=== PATIENT | male | born 1970 | race Caucasian/White ===

== ENCOUNTER → 2017-05-01 | Outpatient (CLI) | payer OTHER ==
--- NOTE | 2017-05-01 17:38 | REP ---
HISTORY: Pain. COMPARISON: None. FINDINGS: The joint spaces are symmetric and relatively well maintained. There is no evidence of acute fracture or destructive osseous lesion. IMPRESSION: Negative. Signed by Lyle Trevino DO 05/01/2017 05:46 P
== END ==
LOC: M WUC 12:25
PROVIDERS: ATTEND Physician Assistant
DX: M79.642 Pain in left hand (principal); M79.645 Pain in left finger(s)

== ENCOUNTER 2017-10-14 10:20 | Emergency (ER) | payer OTHER | END 2017-10-14 16:04 | disposition home or self-care (01) | LOC: M ED 10:20 | DX: M51.16 Intervertebral disc disorders with radiculopathy, lumbar region (principal); V49.40XA Driver injured in collision with unspecified motor vehicles in traffic accident, initial encounter; Y92.410 Unspecified street and highway as the place of occurrence of the external cause | CPT/HCPCS: 72131 ==

== ENCOUNTER → 2017-12-27 | Outpatient (REF) | payer OTHER ==
[2017-12-27 12:55] LABS: PLATELET COUNT, AUTOMATED 295 10^3/uL (150-450)
[2017-12-27 13:05] LABS: INR 0.97; PROTHROMBIN TIME 12.9 SECONDS (12.4-14.5)
== END ==
LOC: M LABDRAW1 12:46
DX: M43.06 Spondylolysis, lumbar region (principal); M47.27 Other spondylosis with radiculopathy, lumbosacral region; M47.816 Spondylosis without myelopathy or radiculopathy, lumbar region; M51.37 Other intervertebral disc degeneration, lumbosacral region
CPT/HCPCS: 85049

== ENCOUNTER 2021-07-30 14:28 | Emergency (ER) | payer OTHER ==
[~2021-07-30] VITALS: Ht 170.2 cm; Wt 90.9 kg
[~2021-07-30 14:28] MED LIST: PERC5TAB12 PO
--- OUTSIDE RECORDS SUMMARY | 2021-07-30 14:32 | CCD ---
Author Author [facility] Address Unknown Phone Unavailable Support Name Relationship Address Phone [employer] [place] [phone] EMILY GAMEZ Next Of Kin [id number] [place] [address] Re-disclosure Warning The records that you are about to access may contain information from federally-assisted alcohol or drug abuse programs. If such information is present, then the following federally mandated warning applies: This information has been disclosed to you from records protected by federal confidentiality rules (42 CFR part 2). The federal rules prohibit you from making any further disclosure of this information unless further disclosure is expressly permitted by the written consent of the person to whom it pertains or as otherwise permitted by 42 CFR part 2. A general authorization for the release of medical or other information is NOT sufficient for this purpose. The Federal rules restrict any use of the information to criminally investigate or prosecute any alcohol or drug abuse patient.The records that you are about to access may contain highly sensitive health information, the redisclosure of which is protected by Article 27-F of the [facility] Public Health law. If you continue you may have access to information: Regarding HIV / AIDS; Provided by facilities licensed or operated by the [facility] Office of Mental Health; or Provided by the [facility] Office for People With Developmental Disabilities. If such information is present, then the following [facility] mandated warning applies: This information has been disclosed to you from confidential records which are protected by state law. State law prohibits you from making any further disclosure of this information without the specific written consent of the person to whom it pertains, or as otherwise permitted by law. Any unauthorized further disclosure in violation of state law may result in a fine or half-way sentence or both. A general authorization for the release of medical or other information is NOT sufficient authorization for further disc losure. Family History Family Member Name Family Member Gender Family Member Status Date o f Status Description Data Source(s) Unknown Male Problem [facility]ENT ([facility]) Unknown Female Problem [facility] ([facility]) Unknown Female Problem [facility] ([facility]) Medications No Information Insurance Providers Payer name Policy type / Coverage type Policy ID Covered constitution party ID Covered constitution party's relationship to smallwood Policy [place] Plan Information [employer] U [id number] Self [id number] [employer] Workers Compensation [id number] Self [id number] [facility] F[employer] MUTUAL AUTO O [id number] S [id number] [employer] COMMUNITY PLAN MCDHMO [id number] SP [id number] [employer] COMMUNITY PLAN MCDHMO [id number] SP [id number] [facility] O [id number] S [id number] [facility] Maintenance Organization (HMO) [id number] Self [id number] [facility] Health Maintenance Organization (HMO) [id number] Self [facility] COMMUNITY PLAN MCDHMO [id number] SP [id number] BC[employer] [id number] Family Dependent STATE [employer] INS NO FAULT [id number] SP [id number] Problems, Conditions, and Diagnoses No Information Surgeries/Procedures No Information Results No Information Social History No Information
[2021-07-30 15:21] LABS: HEMATOCRIT 43.9 % (42.0-52.0); HEMOGLOBIN 14.5 g/dl (13.5-17.5); MEAN CORPUSCULAR HEMOGLOBIN 28.4 pg (27.0-33.0); MEAN CORPUSCULAR VOLUME 85.9 fl (80.0-96.0); PLATELET COUNT, AUTOMATED 274 10^3/uL (150-450); RED BLOOD COUNT 5.11 10^6/uL (4.30-6.10); WHITE BLOOD COUNT 10.7 10^3/uL (4.0-10.0)
--- OUTSIDE RECORDS SUMMARY | 2021-07-30 15:44 | CCD ---
Author Author [facility] Organization [facility] Address Unknown Phone Unavailable Support Name Relationship Address Phone [employer] [place] [phone] EMILY GAMEZ Next Of Kin [phone] [place] [address] Re-disclosure Warning The records that you are [...] is protected by Article 27-F of the [facility] Public Health law. If you continue you may have access to information: Regarding HIV / AIDS; Provided by facilities licensed or operated by the [facility] Office of Mental Health; or Provided by the [facility] Office for People With Developmental Disabilities. If such information is present, then the following [facility] mandated warning applies: This information has been [...] law may result in a fine or mcfp sentence or both. 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 AUTO O [id number] S [id number] [employer] COMMUNITY PLAN MCDHMO [id number] SP [id number] [employer] COMMUNITY PLAN MCDHMO [id number] SP [id number] [facility] O [id number] S [id number] [facility] Health Maintenance Organization (HMO) [id number] Self [id number] [facility] Health Maintenance Organization (HMO) [id number] Self [facility] COMMUNITY PLAN MCDHMO [id number] SP [id number] [employer] [id number] Family Dependent [employer] INS NO FAULT [id number] SP [id number] Problems, Conditions, and Diagnoses No Information Surgeries/Procedures No Information Results No Information Social History No Information
[2021-07-30 15:58] LABS: ACETAMINOPHEN LEVEL < 2.0 UG/ML (10.0-30.0); ALBUMIN 4.6 GM/DL (3.2-5.2); ALT/SGPT 27 U/L (12-78); AMPHETAMINES LEVEL URINE NEGATIVE (NEGATIVE); BARBITURATES URINE NEGATIVE (NEGATIVE); BENZODIAZEPINES URINE NEGATIVE (NEGATIVE); BILIRUBIN,DIRECT 0.1 MG/DL (0.0-0.2); BILIRUBIN,TOTAL 0.5 MG/DL (0.2-1.0); BLOOD UREA NITROGEN 17 MG/DL (7-18); CALCIUM LEVEL 9.5 MG/DL (8.5-10.1); CANNABINOIDS URINE POSITIVE (NEGATIVE); CARBON DIOXIDE LEVEL 25 MEQ/L (21-32); CHLORIDE LEVEL 107 MEQ/L (98-107); COCAINE METABOLITE URINE NEGATIVE (NEGATIVE); CREATININE FOR GFR 1.06 MG/DL (0.70-1.30); ETHYL ALCOHOL (ETHANOL) < 0.003 % (0.000-0.010); GLOMERULAR FILTRATION RATE > 60.0 (>56); GLUCOSE, FASTING 114 MG/DL (70-100); METHADONE URINE NEGATIVE (NEGATIVE); OPIATES URINE NEGATIVE (NEGATIVE); PHENCYCLIDINE URINE NEGATIVE (NEGATIVE); POTASSIUM SERUM 4.2 MEQ/L (3.5-5.1); SODIUM LEVEL 141 MEQ/L (136-145)
[2021-07-30 18:20] VITALS: BP 140/90
== END 2021-07-30 18:25 | disposition home or self-care (01) ==
LOC: M ED 14:28
DX: Z04.6 Encounter for general psychiatric examination, requested by authority (principal); F12.20 Cannabis dependence, uncomplicated

== ENCOUNTER 2022-01-10 06:33 | Emergency (ER) | payer OTHER, SELFPAY ==
[~2022-01-10] VITALS: Ht 170.2 cm; Wt 92.4 kg
[2022-01-10] MEDS ORDERED: NS 1,000 ML IV ONE ×2 (07:05→09:25)
[2022-01-10] MEDS ORDERED: ACETAMINOPHEN 325 MG TAB PO ONE (07:25)
[2022-01-10 07:53] LABS: BASO % 0.2 % (0.0-1.0); EOS % 0.1 % (0.0-3.0); HEMATOCRIT 40.2 % (42.0-52.0); HEMOGLOBIN 13.6 g/dl (13.5-17.5); LYMPH % 5.1 % (24.0-44.0); MEAN CORPUSCULAR HGB CONC 33.8 g/dl (32.0-36.5); MEAN CORPUSCULAR VOLUME 85.7 fl (80.0-96.0); MONO % 5.2 % (2.0-8.0); NEUTROPHILS # 17.4 10^3/uL (1.5-8.5); NEUTROPHILS % 88.9 % (36.0-66.0); PLATELET COUNT, AUTOMATED 207 10^3/uL (150-450); RED BLOOD COUNT 4.69 10^6/uL (4.30-6.10); WHITE BLOOD COUNT 19.6 10^3/uL (4.0-10.0)
[2022-01-10 07:54] LABS: RSV AMPLIFICATION NEGATIVE (NEGATIVE)
[2022-01-10] MEDS ORDERED: ONDANSETRON 4MG/2ML VIAL IV ONE (07:55)
[2022-01-10] MEDS ORDERED: ALBUTEROL 90 MCG/ACT 8GM HFA INHALER INH ONE (08:05)
[2022-01-10] MEDS ORDERED: LevoFLOXacin IV 750 MG in IV 1 EA IV ONE (08:15)
[2022-01-10] MEDS ORDERED: cefTRIAXone SOD 2 GM in D5W MINI-BAG PLUS 50 ML IV ONE (08:15)
[2022-01-10 08:17] LABS: ALBUMIN 4.1 GM/DL (3.2-5.2); ALT/SGPT 29 U/L (12-78); BILIRUBIN,DIRECT 0.2 MG/DL (0.0-0.2); BILIRUBIN,TOTAL 0.4 MG/DL (0.2-1.0); BLOOD UREA NITROGEN 14 MG/DL (7-18); C REACTIVE PROTEIN QUANTITATIV 4.28 MG/DL (0.00-0.30); CALCIUM LEVEL 8.8 MG/DL (8.5-10.1); CARBON DIOXIDE LEVEL 28 MEQ/L (21-32); CHLORIDE LEVEL 105 MEQ/L (98-107); CREATININE FOR GFR 1.06 MG/DL (0.70-1.30); GLOMERULAR FILTRATION RATE > 60.0 (>56); GLUCOSE, FASTING 140 MG/DL (70-100); LIPASE 41 U/L (73-393); NT-PRO BNP 339 PG/ML (<125); POTASSIUM SERUM 4.3 MEQ/L (3.5-5.1); SODIUM LEVEL 137 MEQ/L (136-145); TOTAL PROTEIN 7.2 GM/DL (6.4-8.2)
[2022-01-10 08:23] LABS: ERYTHROCYTE SEDIMENTATION RATE 13 mm/hr (0-20)
[2022-01-10] MEDS ORDERED: ISOVUE-370 76% 100ML VIAL As Ordered ONE (09:35)
[2022-01-10] MEDS ORDERED: LEVO500T4 PO (10:22)
[2022-01-10] MEDS ORDERED: PROAAER10 INH (10:22)
[2022-01-10] MEDS ORDERED: BENZ200C70 PO (10:26)
[2022-01-10 10:39] VITALS: BP 143/73
== END 2022-01-10 10:40 | disposition home or self-care (01) ==
LOC: M ED 06:33
DX: J84.9 Interstitial pulmonary disease, unspecified (principal)
CPT/HCPCS: 71046; 71275; 80048; 80076; 83605; 83690; 83880; 85025; 85379; 85652; 86140; 87040; 87070; 87205; 87631; 87880; 93005; 94640; 96361; 96365; 96366; 96368; 96375; 99284; J0696; J1956; J2405; Q9967

== ENCOUNTER 2022-02-23 10:13 | Emergency (ER) | payer OTHER ==
[~2022-02-23] VITALS: Ht 170.2 cm; Wt 90.2 kg
[~2022-02-23 10:13] MED LIST changes: +BENZ200C70 PO; +LEVO500T4 PO; +PROAAER10 INH
[2022-02-23] MEDS ORDERED: MORPHINE 4 MG/ML 1ML VIAL/SYRINGE IV ONE (10:20)
[2022-02-23] MEDS ORDERED: BOOSTRIX/ADACEL VACCINE (DIPHTH/PERTUSS/ACELL/TETANUS) 0.5ML SYR IM ONE (10:20)
[2022-02-23] MEDS ORDERED: ceFAZolin SOD 2 GM in IV 1 EA IV ONE (10:20)
[2022-02-23] MEDS ORDERED: KETOROLAC 30 MG/ML 1ML VIAL IV ONE (10:40)
[2022-02-23 10:57] LABS: BASO # 0.1 10^3/uL (0.0-0.2); BASO % 0.8 % (0.0-1.0); EOS # 0.2 10^3/uL (0.0-0.5); EOS % 2.4 % (0.0-3.0); HEMATOCRIT 42.2 % (42.0-52.0); HEMOGLOBIN 13.9 g/dl (13.5-17.5); LYMPH # 2.7 10^3/uL (1.5-5.0); LYMPH % 40.8 % (24.0-44.0); MEAN CORPUSCULAR HEMOGLOBIN 28.4 pg (27.0-33.0); MEAN CORPUSCULAR HGB CONC 32.9 g/dl (32.0-36.5); MEAN CORPUSCULAR VOLUME 86.1 fl (80.0-96.0); MONO # 0.6 10^3/uL (0.0-0.8); MONO % 8.7 % (2.0-8.0); NEUTROPHILS # 3.1 10^3/uL (1.5-8.5); NEUTROPHILS % 47.1 % (36.0-66.0); PLATELET COUNT, AUTOMATED 260 10^3/uL (150-450); WHITE BLOOD COUNT 6.6 10^3/uL (4.0-10.0)
[2022-02-23 11:24] LABS: BLOOD UREA NITROGEN 17 MG/DL (7-18); CARBON DIOXIDE LEVEL 27 MEQ/L (21-32); CHLORIDE LEVEL 105 MEQ/L (98-107); GLOMERULAR FILTRATION RATE > 60.0 (>56); GLUCOSE, FASTING 103 MG/DL (70-100); POTASSIUM SERUM 4.5 MEQ/L (3.5-5.1); SODIUM LEVEL 138 MEQ/L (136-145)
[2022-02-23] MEDS ORDERED: HYDR-3713 PO (11:33)
[2022-02-23] MEDS ORDERED: CEPH500C PO (11:33)
[2022-02-23 12:35] VITALS: BP 162/98
== END 2022-02-23 13:19 | disposition home or self-care (01) ==
LOC: M ED 10:13
DX: S68.521A Partial traumatic transphalangeal amputation of right thumb, initial encounter (principal); W31.2XXA Contact with powered woodworking and forming machines, initial encounter; Y92.89 Other specified places as the place of occurrence of the external cause; Y93.89 Activity, other specified; Y99.0 Civilian activity done for income or pay; E78.5 Hyperlipidemia, unspecified; Z79.899 Other long term (current) drug therapy
CPT/HCPCS: 73140; 80048; 85025; 87426; 90471; 90715; 96365; 96366; 96375; 99284; J0690; J1885

== ENCOUNTER 2022-05-02 08:05 | Inpatient (IN) | payer OTHER ==
[~2022-05-02] VITALS: Ht 170.2 cm; Wt 85.7 kg
[~2022-05-02 08:05] MED LIST changes: +CEPH500C PO; +HYDR-3713 PO; +LEVO1TAB39 PO; -LEVO500T4 PO
[2022-05-02 08:52] LABS: BASO # 0.1 10^3/uL (0.0-0.2); BASO % 0.7 % (0.0-1.0); EOS # 0.2 10^3/uL (0.0-0.5); EOS % 1.8 % (0.0-3.0); HEMATOCRIT 43.4 % (42.0-52.0); HEMOGLOBIN 14.2 g/dl (13.5-17.5); LYMPH # 3.1 10^3/uL (1.5-5.0); LYMPH % 35.9 % (24.0-44.0); MEAN CORPUSCULAR HEMOGLOBIN 28.5 pg (27.0-33.0); MEAN CORPUSCULAR HGB CONC 32.7 g/dl (32.0-36.5); MONO # 0.7 10^3/uL (0.0-0.8); MONO % 8.1 % (2.0-8.0); NEUTROPHILS # 4.6 10^3/uL (1.5-8.5); NEUTROPHILS % 53.3 % (36.0-66.0); PLATELET COUNT, AUTOMATED 243 10^3/uL (150-450); RED BLOOD COUNT 4.99 10^6/uL (4.30-6.10); WHITE BLOOD COUNT 8.6 10^3/uL (4.0-10.0)
[2022-05-02 08:54] LABS: APPEARANCE, URINE CLEAR (CLEAR); BACTERIA, URINE AUTO NEGATIVE (NEGATIVE); BILIRUBIN, URINE AUTO NEGATIVE (NEGATIVE); BLOOD, URINE BLOOD NEGATIVE (NEGATIVE); COLOR, URINE YELLOW (YELLOW); GLUCOSE, URINE (UA) AUTO NEGATIVE (NEGATIVE); KETONE, URINE AUTO NEGATIVE (NEGATIVE); LEUKOCYTE ESTERASE, URINE AUTO NEGATIVE (NEGATIVE); NITRITE, URINE AUTO NEGATIVE (NEGATIVE); PROTEIN, URINE AUTO NEGATIVE (NEGATIVE); RBC, URINE AUTO 0 /HPF (0-3); SPECIFIC GRAVITY URINE AUTO 1.009 (1.002-1.035); SQUAMOUS EPITHELIAL CELL UR AU 0 /HPF (0-6); UROBILINOGEN, URINE AUTO 0.2 mg/dL (0.0-2.0); WBC, URINE AUTO 0 /HPF (0-3)
[2022-05-02 09:10] LABS: INR 0.95
[2022-05-02 09:11] LABS: PARTIAL THROMBOPLASTIN TIME 36.7 SECONDS (25.9-37.0)
[2022-05-02 09:25] LABS: BLOOD UREA NITROGEN 18 MG/DL (7-18); CARBON DIOXIDE LEVEL 28 MEQ/L (21-32); CHLORIDE LEVEL 106 MEQ/L (98-107); GLOMERULAR FILTRATION RATE > 60.0 (>56); GLUCOSE, FASTING 123 MG/DL (70-100); POTASSIUM SERUM 4.2 MEQ/L (3.5-5.1); SODIUM LEVEL 138 MEQ/L (136-145)
[2022-05-02 09:30] LABS: CK-MB VALUE MASS 1.5 NG/ML (<3.6); MB/CK RELATIVE INDEX 0.43 (< OR =4)
[2022-05-02 09:57] LABS: RSV AMPLIFICATION NEGATIVE (NEGATIVE)
[2022-05-02] MEDS ORDERED: ASPIRIN 81 MG CHEW TABLET PO ONE (10:55)
[2022-05-02] MEDS ORDERED: HOME MED LIST COMPLETE! XX SCH (11:30)
[2022-05-02] MEDS ORDERED: MIDAZOLAM INJ 2MG/2ML VIAL (J2250 PER 1MG) IV STA (12:50)
[2022-05-02] MEDS ORDERED: levETIRAcetam INJection 1,000 MG in D5W 100 ML IV ONE (16:30)
[2022-05-02 16:35] VITALS: BP 184/96
[2022-05-02] MEDS ORDERED: lisinopriL 5 MG TAB PO ONE (17:30)
[2022-05-02] MEDS: levETIRAcetam INJection 500 MG in D5W MINI-BAG PLUS 100 ML IV SCH ×2 (17:35→18:26)
[2022-05-02] MEDS: ENOXAPARIN 40MG/0.4ML SYRINGE (J1650 PER 10MG) SC SCH (17:37)
[2022-05-02 17:48] VITALS: O2SAT 99
[2022-05-02] MEDS ORDERED: MIDAZOLAM INJ 2MG/2ML VIAL (J2250 PER 1MG) IV PRN (18:05)
[2022-05-02] MEDS ORDERED: diazePAM 10MG/2ML SYRINGE (J3360 PER 5MG) IV PRN (18:45)
[2022-05-02 19:17] LABS: C REACTIVE PROTEIN QUANTITATIV 0.43 MG/DL (0.00-0.30); CHOLESTEROL RISK RATIO 5.17 (<5); THYROID STIMULATING HORMONE 4.25 uIU/ML (0.358-3.740)
[2022-05-02 20:05] LABS: HEMOGLOBIN A1c 5.6 %
[2022-05-02 21:37] VITALS: BP 108/51
[2022-05-03] VITALS (7 sets, daily range): BP systolic 101–136; BP diastolic 44–85; O2SAT 96
[2022-05-03 03:57] LABS: BASO % 0.5 % (0.0-1.0); EOS # 0.1 10^3/uL (0.0-0.5); EOS % 1.8 % (0.0-3.0); HEMATOCRIT 41.4 % (42.0-52.0); HEMOGLOBIN 13.8 g/dl (13.5-17.5); LYMPH # 2.9 10^3/uL (1.5-5.0); LYMPH % 37.5 % (24.0-44.0); MEAN CORPUSCULAR HEMOGLOBIN 28.5 pg (27.0-33.0); MEAN CORPUSCULAR HGB CONC 33.3 g/dl (32.0-36.5); MEAN CORPUSCULAR VOLUME 85.4 fl (80.0-96.0); MONO # 0.6 10^3/uL (0.0-0.8); MONO % 7.5 % (2.0-8.0); NEUTROPHILS % 52.4 % (36.0-66.0); PLATELET COUNT, AUTOMATED 217 10^3/uL (150-450); RED BLOOD COUNT 4.85 10^6/uL (4.30-6.10); WHITE BLOOD COUNT 7.6 10^3/uL (4.0-10.0)
[2022-05-03 04:27] LABS: BLOOD UREA NITROGEN 13 MG/DL (7-18); CALCIUM LEVEL 8.9 MG/DL (8.5-10.1); CARBON DIOXIDE LEVEL 30 MEQ/L (21-32); CHLORIDE LEVEL 107 MEQ/L (98-107); CK-MB VALUE MASS < 1.0 NG/ML (<3.6); CPK CREATINE PHOSPHOKINASE 195 U/L (39-308); CREATININE FOR GFR 0.97 MG/DL (0.70-1.30); GLOMERULAR FILTRATION RATE > 60.0 (>56); GLUCOSE, FASTING 108 MG/DL (70-100); MAGNESIUM LEVEL 2.3 MG/DL (1.8-2.4); MB/CK RELATIVE INDEX 0.51 (< OR =4); POTASSIUM SERUM 4.1 MEQ/L (3.5-5.1); SODIUM LEVEL 139 MEQ/L (136-145)
[2022-05-03] MEDS: lisinopriL 5 MG TAB PO SCH (08:14)
[2022-05-03] MEDS: ENOXAPARIN 40MG/0.4ML SYRINGE (J1650 PER 10MG) SC SCH (08:15)
[2022-05-03] MEDS ORDERED: CYANOCOBALAMIN 500 MCG TAB PO SCH (09:00)
[2022-05-03] MEDS ORDERED: levETIRAcetam 250MG TABLET (KEPPRA) PO SCH ×2 (09:00→21:00)
[2022-05-03] MEDS: VALPROATE SOD INJ 750 MG in D5W 50 ML IV SCH (20:54)
[2022-05-03] MEDS: ATORVASTATIN 20 MG TAB PO SCH (20:57)
[2022-05-04] VITALS (7 sets, daily range): BP systolic 103–144; BP diastolic 60–89; O2SAT 93
[2022-05-04] MEDS: ONDANSETRON 4MG 2ML VIAL IV PRN ×2 (03:36→09:12)
[2022-05-04 06:33] LABS: BLOOD UREA NITROGEN 17 MG/DL (7-18); CALCIUM LEVEL 9.1 MG/DL (8.5-10.1); CARBON DIOXIDE LEVEL 27 MEQ/L (21-32); CHLORIDE LEVEL 102 MEQ/L (98-107); CREATININE FOR GFR 1.11 MG/DL (0.70-1.30); GLOMERULAR FILTRATION RATE > 60.0 (>56); GLUCOSE, FASTING 117 MG/DL (70-100); SODIUM LEVEL 135 MEQ/L (136-145); VALPROIC ACID (DEPAKOTE) 27.3 UG/ML (50.0-100.0)
[2022-05-04] MEDS: lisinopriL 5 MG TAB PO SCH (08:23)
[2022-05-04] MEDS: CYANOCOBALAMIN 1,000MCG/ML VIAL (J3420) IM SCH (08:23)
[2022-05-04] MEDS: ENOXAPARIN 40MG/0.4ML SYRINGE (J1650 PER 10MG) SC SCH (08:23)
[2022-05-04] MEDS ORDERED: CYANOCOBALAMIN 1,000MCG/ML VIAL (J3420) SC SCH (09:00)
[2022-05-04] MEDS: VALPROATE SOD INJ 750 MG in D5W 50 ML IV SCH (09:12)
[2022-05-04] MEDS: cefTRIAXone SOD 1 GM in D5W MINI-BAG PLUS 50 ML IV SCH (11:44)
[2022-05-04] MEDS ORDERED: ACETAMINOPHEN TAB 650MG DOSE (2X325MG) PO ONE (11:50)
[2022-05-04] MEDS ORDERED: IBUPROFEN 400MG TAB PO ONE (13:05)
[2022-05-04] MEDS ORDERED: VANCOMYCIN HCL 1,000 MG, VIAL MATE ADAPTER 1 EACH in D5W 250 ML IV ONE (15:10)
[2022-05-04 15:57] LABS: C REACTIVE PROTEIN QUANTITATIV 0.67 MG/DL (0.00-0.30)
[2022-05-04] MEDS: ATORVASTATIN 20 MG TAB PO SCH (20:43)
[2022-05-04] MEDS: VANCOMYCIN HCL 1,000 MG, VIAL MATE ADAPTER 1 EACH in D5W 250 ML IV SCH (20:43)
[2022-05-04] MEDS ORDERED: VALPROATE SOD INJ 1,000 MG in D5W 50 ML IV SCH (21:00)
[2022-05-04] MEDS ORDERED: ACETAMINOPHEN TAB 650MG DOSE (2X325MG) PO PRN (21:05)
[2022-05-04] MEDS: levETIRAcetam INJection 1,000 MG in D5W 100 ML IV SCH (22:00)
[2022-05-05] VITALS (7 sets, daily range): BP systolic 107–144; BP diastolic 57–80; O2SAT 95
[2022-05-05] MEDS: GASTROGRAFIN SOLUTION 30ML PO SCH ×2 (09:23→09:48)
[2022-05-05] MEDS: ENOXAPARIN 40MG/0.4ML SYRINGE (J1650 PER 10MG) SC SCH (09:57)
[2022-05-05] MEDS: levETIRAcetam INJection 1,000 MG in D5W 100 ML IV SCH ×2 (09:57→23:54)
[2022-05-05] MEDS: lisinopriL 5 MG TAB PO SCH (09:58)
[2022-05-05] MEDS ORDERED: METAMUCIL (PSYLLIUM) PACKET PO PRN (10:20)
[2022-05-05] MEDS: VANCOMYCIN HCL 1,000 MG, VIAL MATE ADAPTER 1 EACH in D5W 250 ML IV SCH (10:33)
[2022-05-05] MEDS: CYANOCOBALAMIN 1,000MCG/ML VIAL (J3420) IM SCH (10:34)
[2022-05-05 11:35] LABS: BLOOD UREA NITROGEN 12 MG/DL (7-18); CALCIUM LEVEL 8.9 MG/DL (8.5-10.1); CARBON DIOXIDE LEVEL 27 MEQ/L (21-32); CHLORIDE LEVEL 104 MEQ/L (98-107); CREATININE FOR GFR 0.96 MG/DL (0.70-1.30); GLOMERULAR FILTRATION RATE > 60.0 (>56); GLUCOSE, FASTING 104 MG/DL (70-100); POTASSIUM SERUM 3.9 MEQ/L (3.5-5.1); SODIUM LEVEL 136 MEQ/L (136-145)
[2022-05-05] MEDS: cefTRIAXone SOD 1 GM in D5W MINI-BAG PLUS 50 ML IV SCH (12:51)
[2022-05-05] MEDS: ATORVASTATIN 20 MG TAB PO SCH (21:05)
[2022-05-05] MEDS: VANCOMYCIN HCL 750 MG, VIAL MATE ADAPTER 1 EACH in D5W 250 ML IV SCH (21:05)
[2022-05-06] MEDS: VANCOMYCIN HCL 500 MG in D5W MINI-BAG PLUS 100 ML IV SCH ×2 (00:15→11:40)
[2022-05-06 02:00] VITALS: BP 119/66
[2022-05-06 06:00] VITALS: BP 120/65
[2022-05-06 07:02] LABS: BASO % 0.8 % (0.0-1.0); EOS # 0.1 10^3/uL (0.0-0.5); EOS % 1.9 % (0.0-3.0); HEMATOCRIT 39.6 % (42.0-52.0); HEMOGLOBIN 13.4 g/dl (13.5-17.5); LYMPH # 1.3 10^3/uL (1.5-5.0); LYMPH % 24.8 % (24.0-44.0); MEAN CORPUSCULAR HEMOGLOBIN 28.8 pg (27.0-33.0); MEAN CORPUSCULAR HGB CONC 33.8 g/dl (32.0-36.5); MEAN CORPUSCULAR VOLUME 85.2 fl (80.0-96.0); MONO # 0.7 10^3/uL (0.0-0.8); MONO % 14.1 % (2.0-8.0); NEUTROPHILS # 3.1 10^3/uL (1.5-8.5); NEUTROPHILS % 58.2 % (36.0-66.0); PLATELET COUNT, AUTOMATED 172 10^3/uL (150-450); RED BLOOD COUNT 4.65 10^6/uL (4.30-6.10); WHITE BLOOD COUNT 5.2 10^3/uL (4.0-10.0)
[2022-05-06 07:38] LABS: BLOOD UREA NITROGEN 13 MG/DL (7-18); C REACTIVE PROTEIN QUANTITATIV 6.97 MG/DL (0.00-0.30); CALCIUM LEVEL 8.6 MG/DL (8.5-10.1); CARBON DIOXIDE LEVEL 27 MEQ/L (21-32); CHLORIDE LEVEL 104 MEQ/L (98-107); CREATININE FOR GFR 0.93 MG/DL (0.70-1.30); GLOMERULAR FILTRATION RATE > 60.0 (>56); GLUCOSE, FASTING 113 MG/DL (70-100); MAGNESIUM LEVEL 2.1 MG/DL (1.8-2.4); PHOSPHORUS LEVEL 3.3 MG/DL (2.5-4.9); POTASSIUM SERUM 3.8 MEQ/L (3.5-5.1); SODIUM LEVEL 135 MEQ/L (136-145)
[2022-05-06 07:42] LABS: ERYTHROCYTE SEDIMENTATION RATE 17 mm/hr (0-20)
[2022-05-06] MEDS: VANCOMYCIN HCL 750 MG, VIAL MATE ADAPTER 1 EACH in D5W 250 ML IV SCH ×2 (09:53→20:46)
[2022-05-06] MEDS: CYANOCOBALAMIN 1,000MCG/ML VIAL (J3420) IM SCH (09:54)
[2022-05-06] MEDS: ENOXAPARIN 40MG/0.4ML SYRINGE (J1650 PER 10MG) SC SCH (09:54)
[2022-05-06] MEDS: lisinopriL 5 MG TAB PO SCH (09:55)
[2022-05-06 10:00] VITALS: BP 128/71
[2022-05-06] MEDS: levETIRAcetam 250MG TABLET (KEPPRA) PO SCH ×2 (13:09→20:46)
[2022-05-06 14:00] VITALS: BP 124/70
[2022-05-06 18:00] VITALS: BP 124/69
[2022-05-06] MEDS: ATORVASTATIN 20 MG TAB PO SCH (20:46)
[2022-05-06 22:00] VITALS: BP 121/70
[2022-05-06] MEDS ORDERED: VANCOMYCIN HCL 750 MG, VIAL MATE ADAPTER 1 EACH in D5W 250 ML IV ONE (22:00)
[2022-05-07 02:00] VITALS: BP 126/70
[2022-05-07 06:00] VITALS: BP 148/94
[2022-05-07 06:41] LABS: BASO % 0.4 % (0.0-1.0); EOS # 0.1 10^3/uL (0.0-0.5); EOS % 1.4 % (0.0-3.0); HEMATOCRIT 40.6 % (42.0-52.0); HEMOGLOBIN 13.6 g/dl (13.5-17.5); LYMPH # 1.5 10^3/uL (1.5-5.0); MEAN CORPUSCULAR HEMOGLOBIN 28.6 pg (27.0-33.0); MEAN CORPUSCULAR HGB CONC 33.5 g/dl (32.0-36.5); MEAN CORPUSCULAR VOLUME 85.5 fl (80.0-96.0); MONO # 0.7 10^3/uL (0.0-0.8); MONO % 12.7 % (2.0-8.0); NEUTROPHILS # 3.2 10^3/uL (1.5-8.5); NEUTROPHILS % 58.3 % (36.0-66.0); PLATELET COUNT, AUTOMATED 185 10^3/uL (150-450); RED BLOOD COUNT 4.75 10^6/uL (4.30-6.10); WHITE BLOOD COUNT 5.5 10^3/uL (4.0-10.0)
[2022-05-07 07:10] LABS: BLOOD UREA NITROGEN 13 MG/DL (7-18); CARBON DIOXIDE LEVEL 28 MEQ/L (21-32); CHLORIDE LEVEL 105 MEQ/L (98-107); CREATININE FOR GFR 1.03 MG/DL (0.70-1.30); GLOMERULAR FILTRATION RATE > 60.0 (>56); GLUCOSE, FASTING 103 MG/DL (70-100); MAGNESIUM LEVEL 2.2 MG/DL (1.8-2.4); POTASSIUM SERUM 4.4 MEQ/L (3.5-5.1); SODIUM LEVEL 137 MEQ/L (136-145)
[2022-05-07] MEDS: ENOXAPARIN 40MG/0.4ML SYRINGE (J1650 PER 10MG) SC SCH (08:45)
[2022-05-07] MEDS: levETIRAcetam 250MG TABLET (KEPPRA) PO SCH ×2 (08:45→20:12)
[2022-05-07] MEDS: VANCOMYCIN HCL 750 MG, VIAL MATE ADAPTER 1 EACH in D5W 250 ML IV SCH (08:45)
[2022-05-07] MEDS: lisinopriL 5 MG TAB PO SCH (08:46)
[2022-05-07] MEDS ORDERED: VANCOMYCIN HCL 750 MG, VIAL MATE ADAPTER 1 EACH in D5W 250 ML IV SCH ×2 (09:00→10:00)
[2022-05-07 10:00] VITALS: BP 109/63
[2022-05-07] MEDS: ceFAZolin SOD 2 GM in IV 1 EA IV SCH ×2 (10:31→17:43)
[2022-05-07] MEDS: CYANOCOBALAMIN 1,000MCG/ML VIAL (J3420) IM SCH (10:32)
[2022-05-07 14:00] VITALS: BP 116/62
[2022-05-07 18:00] VITALS: BP 140/91
[2022-05-07] MEDS ORDERED: CYAN1000VL IM (18:53)
[2022-05-07] MEDS ORDERED: KEPP250T5 PO (18:53)
[2022-05-07] MEDS ORDERED: ATOR1TAB21 PO (18:53)
[2022-05-07] MEDS ORDERED: LISI5TAB11 PO (18:53)
[2022-05-07] MEDS: ATORVASTATIN 20 MG TAB PO SCH (20:12)
[2022-05-07 22:00] VITALS: BP 136/85
[2022-05-08 02:00] VITALS: BP 122/76
[2022-05-08] MEDS: ceFAZolin SOD 2 GM in IV 1 EA IV SCH ×2 (02:49→09:54)
[2022-05-08 06:00] VITALS: BP 127/76
[2022-05-08 06:36] LABS: BASO % 0.5 % (0.0-1.0); EOS # 0.1 10^3/uL (0.0-0.5); EOS % 1.4 % (0.0-3.0); HEMATOCRIT 41.4 % (42.0-52.0); HEMOGLOBIN 13.7 g/dl (13.5-17.5); LYMPH # 1.9 10^3/uL (1.5-5.0); LYMPH % 28.8 % (24.0-44.0); MEAN CORPUSCULAR HEMOGLOBIN 28.1 pg (27.0-33.0); MEAN CORPUSCULAR HGB CONC 33.1 g/dl (32.0-36.5); MONO # 0.7 10^3/uL (0.0-0.8); MONO % 10.1 % (2.0-8.0); NEUTROPHILS # 3.9 10^3/uL (1.5-8.5); NEUTROPHILS % 58.9 % (36.0-66.0); PLATELET COUNT, AUTOMATED 202 10^3/uL (150-450); RED BLOOD COUNT 4.87 10^6/uL (4.30-6.10); WHITE BLOOD COUNT 6.5 10^3/uL (4.0-10.0)
[2022-05-08 07:05] LABS: BLOOD UREA NITROGEN 13 MG/DL (7-18); C REACTIVE PROTEIN QUANTITATIV 2.03 MG/DL (0.00-0.30); CARBON DIOXIDE LEVEL 28 MEQ/L (21-32); CHLORIDE LEVEL 104 MEQ/L (98-107); CREATININE FOR GFR 0.91 MG/DL (0.70-1.30); GLOMERULAR FILTRATION RATE > 60.0 (>56); GLUCOSE, FASTING 106 MG/DL (70-100); MAGNESIUM LEVEL 2.1 MG/DL (1.8-2.4); PHOSPHORUS LEVEL 3.9 MG/DL (2.5-4.9); SODIUM LEVEL 136 MEQ/L (136-145)
[2022-05-08 07:37] LABS: ERYTHROCYTE SEDIMENTATION RATE 21 mm/hr (0-20)
[2022-05-08 09:54] VITALS: BP 147/97
[2022-05-08] MEDS: levETIRAcetam 250MG TABLET (KEPPRA) PO SCH (09:54)
[2022-05-08] MEDS: lisinopriL 5 MG TAB PO SCH (09:54)
[2022-05-08] MEDS: CYANOCOBALAMIN 1,000MCG/ML VIAL (J3420) IM SCH (09:54)
[2022-05-08] MEDS: ENOXAPARIN 40MG/0.4ML SYRINGE (J1650 PER 10MG) SC SCH (09:55)
== END 2022-05-08 10:50 | disposition short-term general hospital (02) | DRG 53 ==
LOC: M ED 08:05 → M ED INP 08:06 → INTOOBSV 08:06 → UNDOADMIN 12:16 → M ED INP 12:16 → ENRESERV 13:38 → M MSPAV 16:36 → M ED INP 16:36 → OBSVTOIN 05-04 13:43
PROVIDERS: ADMIT Internal Medicine; ATTEND Internal Medicine
PROC: B246ZZZ Ultrasonography of Right and Left Heart (ICD-10-PCS; principal; 2022-05-06)
DX: G40.909 Epilepsy, unspecified, not intractable, without status epilepticus (principal); R78.81 Bacteremia; I10 Essential (primary) hypertension; E78.5 Hyperlipidemia, unspecified; E55.9 Vitamin D deficiency, unspecified; R20.2 Paresthesia of skin; M48.02 Spinal stenosis, cervical region; E53.8 Deficiency of other specified B group vitamins; B95.61 Methicillin susceptible Staphylococcus aureus infection as the cause of diseases classified elsewhere; Z88.8 Allergy status to other drugs, medicaments and biological substances; M46.44 Discitis, unspecified, thoracic region; Z20.822 Contact with and (suspected) exposure to COVID-19

== ENCOUNTER → 2022-11-16 | Outpatient (REF) | payer OTHER ==
[~2022-11-16] MED LIST changes: +ATOR1TAB21 PO; +CYAN1000VL IM; +KEPP250T5 PO; +LISI5TAB11 PO
[2022-11-16 13:33] LABS: ALBUMIN 4.1 G/DL (3.2-5.2); ALKALINE PHOSPHATASE 83 U/L (46-116); ALT/SGPT 26 U/L (7.0-40); AST/SGOT 15 U/L (<34); BILIRUBIN,TOTAL 0.6 MG/DL (0.3-1.2); BLOOD UREA NITROGEN 16 MG/DL (9-23); CALCIUM LEVEL 9.8 MG/DL (8.5-10.1); CARBON DIOXIDE LEVEL 30 MMOL/L (20-31); CHLORIDE LEVEL 103 MMOL/L (98-107); CHOLESTEROL LEVEL 250 MG/DL (<200); CHOLESTEROL RISK RATIO 6.05 (<5); CREATININE FOR GFR 0.95 MG/DL (0.70-1.30); FREE T4 1.12 NG/DL (0.89-1.76); GLOMERULAR FILTRATION RATE > 60.0 (>56); GLUCOSE, FASTING 92 MG/DL (60-100); HDL CHOLESTEROL 41.3 MG/DL (>40); LDL CHOLESTEROL 159.1 MG/DL (<100); NON-HDL-C 209 MG/DL; POTASSIUM SERUM 4.7 MMOL/L (3.5-5.1); SODIUM LEVEL 138 MMOL/L (136-145); THYROID STIMULATING HORMONE 3.705 uIU/ML (0.55-4.78); TOTAL PROTEIN 7.3 G/DL (5.7-8.2); TRIGLYCERIDES LEVEL 248 MG/DL (<150)
== END ==
LOC: M LAB REF 11:35
PROVIDERS: ATTEND Family Medicine Addiction Medicine
DX: E66.3 Overweight (principal); R53.83 Other fatigue

== ENCOUNTER → 2022-12-06 | Outpatient (REF) | payer OTHER ==
[2022-12-06 17:16] LABS: BASO # 0.1 10^3/uL (0.0-0.2); BASO % 0.7 % (0.0-1.0); EOS # 0.2 10^3/uL (0.0-0.5); EOS % 2.9 % (0.0-3.0); HEMATOCRIT 42.5 % (42.0-52.0); LYMPH # 3.2 10^3/uL (1.5-5.0); LYMPH % 42.3 % (24.0-44.0); MEAN CORPUSCULAR HEMOGLOBIN 28.1 pg (27.0-33.0); MEAN CORPUSCULAR HGB CONC 32.9 g/dl (32.0-36.5); MEAN CORPUSCULAR VOLUME 85.2 fl (80.0-96.0); MONO # 0.6 10^3/uL (0.0-0.8); MONO % 7.2 % (2.0-8.0); NEUTROPHILS # 3.5 10^3/uL (1.5-8.5); NEUTROPHILS % 46.6 % (36.0-66.0); PLATELET COUNT, AUTOMATED 278 10^3/uL (150-450); RED BLOOD COUNT 4.99 10^6/uL (4.30-6.10); WHITE BLOOD COUNT 7.6 10^3/uL (4.0-10.0)
== END ==
LOC: M LAB REF 16:24
PROVIDERS: ATTEND Family Medicine Addiction Medicine
DX: E53.8 Deficiency of other specified B group vitamins (principal)

== ENCOUNTER 2023-07-29 11:20 | Emergency (ER) | payer OTHER ==
[~2023-07-29] VITALS: Ht 172.7 cm; Wt 95.5 kg
[2023-07-29 11:20] VITALS: TEMP 97.5
[2023-07-29 12:35] LABS: BASO # 0.1 10^3/uL (0.0-0.2); BASO % 0.6 % (0.0-1.0); EOS # 0.1 10^3/uL (0.0-0.5); HEMATOCRIT 41.7 % (42.0-52.0); LYMPH # 2.2 10^3/uL (1.5-5.0); LYMPH % 24.9 % (24.0-44.0); MEAN CORPUSCULAR HEMOGLOBIN 28.4 pg (27.0-33.0); MEAN CORPUSCULAR HGB CONC 33.6 g/dl (32.0-36.5); MEAN CORPUSCULAR VOLUME 84.6 fl (80.0-96.0); MONO # 0.6 10^3/uL (0.0-0.8); MONO % 6.7 % (2.0-8.0); NEUTROPHILS # 5.8 10^3/uL (1.5-8.5); NEUTROPHILS % 66.5 % (36.0-66.0); PLATELET COUNT, AUTOMATED 254 10^3/uL (150-450); RED BLOOD COUNT 4.93 10^6/uL (4.30-6.10); WHITE BLOOD COUNT 8.7 10^3/uL (4.0-10.0)
[2023-07-29 12:47] LABS: INR 1.11; PARTIAL THROMBOPLASTIN TIME 29.7 SECONDS (24.8-34.2); PROTHROMBIN TIME 13.9 SECONDS (12.5-14.5)
[2023-07-29 13:06] LABS: CK-MB VALUE MASS < 1.0 NG/ML (<3.6)
[2023-07-29 13:07] LABS: LIPASE 31 U/L (12-53)
[2023-07-29 13:09] LABS: CPK CREATINE PHOSPHOKINASE 147 U/L (46-171); MB/CK RELATIVE INDEX 0.68 (< OR =4)
[2023-07-29 13:10] LABS: ALBUMIN 4.2 G/DL (3.2-5.2); ALKALINE PHOSPHATASE 72 U/L (46-116); ALT/SGPT 27 U/L (7.0-40); AST/SGOT 22 U/L (<34); BILIRUBIN,DIRECT 0.2 MG/DL (<0.4); BILIRUBIN,TOTAL 0.6 MG/DL (0.3-1.2); BLOOD UREA NITROGEN 16 MG/DL (9-23); CARBON DIOXIDE LEVEL 27 MMOL/L (20-31); CHLORIDE LEVEL 105 MMOL/L (98-107); CREATININE FOR GFR 0.88 MG/DL (0.70-1.30); GLOMERULAR FILTRATION RATE > 60.0 (>56); GLUCOSE, FASTING 105 MG/DL (60-100); POTASSIUM SERUM 4.2 MMOL/L (3.5-5.1); SODIUM LEVEL 139 MMOL/L (136-145); THYROID STIMULATING HORMONE 2.191 uIU/ML (0.55-4.78); TOTAL PROTEIN 7.3 G/DL (5.7-8.2)
[2023-07-29 13:11] LABS: FREE T4 1.06 NG/DL (0.89-1.76)
[2023-07-29] MEDS ORDERED: ISOVUE-370 76% 100ML VIAL As Ordered ONE (13:17)
[2023-07-29 14:01] LABS: CK-MB VALUE MASS 1.1 NG/ML (<3.6)
[2023-07-29 14:05] LABS: MB/CK RELATIVE INDEX 0.8 (< OR =4)
[2023-07-29] MEDS ORDERED: NITROGLYCERIN 0.4MG SUBL TABLET SL PRN (14:15)
[2023-07-29] MEDS ORDERED: HEPARIN DRIP 25,000 UNITS in IV 1 EA IV SCH (14:20)
[2023-07-29] MEDS ORDERED: HEPARIN SOD (PORCINE) 5000UNITS/ML 1ML VIAL/SYRINGE IV ONE (14:20)
[2023-07-29 15:31] VITALS: O2SAT 98
[2023-07-29 15:40] VITALS: BP 153/64
== END 2023-07-29 15:43 | disposition short-term general hospital (02) ==
LOC: M ED 11:20
DX: I21.4 Non-ST elevation (NSTEMI) myocardial infarction (principal); Z82.49 Family history of ischemic heart disease and other diseases of the circulatory system; Z79.899 Other long term (current) drug therapy; Z88.8 Allergy status to other drugs, medicaments and biological substances
CPT/HCPCS: 71045; 71275; 80048; 80076; 82550; 82553; 83690; 83880; 84439; 84443; 85025; 85610; 85730; 93005; 93041; 94760; 96365; 99285; Q9967

== ENCOUNTER 2023-10-14 22:29 | Emergency (ER) | payer BC, OTHER ==
[2023-10-14] MEDS ORDERED: NITROGLYCERIN 0.4MG SUBL TABLET As Ordered ONE (22:45)
[2023-10-14] MEDS ORDERED: MORPHINE 2 MG/ML 1ML VIAL IV PRN (22:45)
[2023-10-14] MEDS: NITROGLYCERIN 0.4MG SUBL TABLET SL PRN ×5 (22:46→23:24)
[2023-10-14] MEDS: MORPHINE 4 MG/ML 1ML VIAL IV PRN ×2 (23:07→23:29)
[2023-10-14 23:11] LABS: VENOUS BASE EXCESS 0.9 (-2.0-2.0); VENOUS HCO3 22.6 MMOL/L (23.0-27.0); VENOUS O2 SATURATION 60.5 % (60.0-80.0); VENOUS PARTIAL PRESSURE CO2 28.9 mmHg (38.0-50.0); VENOUS PH 7.511 UNITS (7.330-7.430); VENOUS STANDARD HCO3 24.3 MMOL/L; VENOUS TOTAL CO2 23.5 MMOL/L (24.0-28.0)
[2023-10-14 23:14] LABS: BASO # 0.1 10^3/uL (0.0-0.2); BASO % 0.4 % (0.0-1.0); EOS # 0.1 10^3/uL (0.0-0.5); EOS % 1.2 % (0.0-3.0); HEMATOCRIT 45.8 % (42.0-52.0); HEMOGLOBIN 15.9 g/dl (13.5-17.5); LYMPH # 2.9 10^3/uL (1.5-5.0); LYMPH % 25.9 % (24.0-44.0); MEAN CORPUSCULAR HEMOGLOBIN 27.9 pg (27.0-33.0); MEAN CORPUSCULAR HGB CONC 34.7 g/dl (32.0-36.5); MEAN CORPUSCULAR VOLUME 80.5 fl (80.0-96.0); MONO % 9.1 % (2.0-8.0); NEUTROPHILS # 7.2 10^3/uL (1.5-8.5); NEUTROPHILS % 63.1 % (36.0-66.0); PLATELET COUNT, AUTOMATED 297 10^3/uL (150-450); RED BLOOD COUNT 5.69 10^6/uL (4.30-6.10); WHITE BLOOD COUNT 11.3 10^3/uL (4.0-10.0)
[2023-10-14] MEDS: niCARdipine IV 40 MG in IV 1 EA IV SCH (23:14)
[2023-10-14 23:15] VITALS: BP 180/90
[2023-10-14] MEDS ORDERED: ONDANSETRON 4MG 2ML VIAL IV ONE (23:15)
[2023-10-14 23:38] LABS: LIPASE 27 U/L (12-53)
[2023-10-14 23:39] LABS: CK-MB VALUE MASS < 1.0 NG/ML (<3.6)
[2023-10-14 23:41] LABS: ALBUMIN 4.6 G/DL (3.2-5.2); ALKALINE PHOSPHATASE 99 U/L (46-116); ALT/SGPT 50 U/L (7.0-40); AST/SGOT 25 U/L (<34); BILIRUBIN,DIRECT 0.3 MG/DL (<0.4); BILIRUBIN,TOTAL 1.1 MG/DL (0.3-1.2); BLOOD UREA NITROGEN 14 MG/DL (9-23); CALCIUM LEVEL 10.4 MG/DL (8.5-10.1); CARBON DIOXIDE LEVEL 23 MMOL/L (20-31); CHLORIDE LEVEL 104 MMOL/L (98-107); CREATININE FOR GFR 0.86 MG/DL (0.70-1.30); GLOMERULAR FILTRATION RATE > 60.0 (>56); GLUCOSE, FASTING 117 MG/DL (60-100); SODIUM LEVEL 139 MMOL/L (136-145)
[2023-10-14 23:43] LABS: THYROID STIMULATING HORMONE 5.082 uIU/ML (0.55-4.78)
[2023-10-14 23:44] LABS: CPK CREATINE PHOSPHOKINASE 179 U/L (46-171); MB/CK RELATIVE INDEX 0.55 (< OR =4)
[2023-10-15] MEDS ORDERED: ISOVUE-370 76% 100ML VIAL As Ordered ONE (00:22)
[2023-10-15 00:58] LABS: CK-MB VALUE MASS < 1.0 NG/ML (<3.6)
[2023-10-15 01:00] LABS: CPK CREATINE PHOSPHOKINASE 147 U/L (46-171); MB/CK RELATIVE INDEX 0.68 (< OR =4)
[2023-10-15] MEDS ORDERED: PIPERACILLIN/TAZOBACTAM SOD 4.5 GM in D5W MINI-BAG PLUS 50 ML IV ONE (02:40)
[2023-10-15] MEDS ORDERED: MORPHINE 4 MG/ML 1ML VIAL IV ONE (02:40)
[2023-10-15] MEDS: niCARdipine IV 40 MG in IV 1 EA IV SCH (02:41)
[2023-10-15 04:28] LABS: RSV AMPLIFICATION NEGATIVE (NEGATIVE)
[2023-10-15 06:00] VITALS: TEMP 97.9
[2023-10-15 06:30] VITALS: BP 128/72; O2SAT 95
== END 2023-10-15 06:46 | disposition short-term general hospital (02) ==
LOC: M ED 22:29
DX: K81.0 Acute cholecystitis (principal); I10 Essential (primary) hypertension; Z79.899 Other long term (current) drug therapy
CPT/HCPCS: 71045; 71275; 76705; 80048; 80076; 82550; 82553; 82803; 83690; 83880; 84443; 84484; 85025; 87631; 93005; 93041; 94760; 96365; 96366; 96375; 99285; 99291; J2405; J2543; Q9967